=== PATIENT | female | born 2000 | race Caucasian/White ===

== ENCOUNTER 2023-07-10 14:50 | Outpatient (CLI) | payer OTHER ==
[2023-07-10] MEDS ORDERED: ADULT LOW DOSE81 M1 PO (15:01)
[2023-07-10] MEDS ORDERED: PRENATAL TABLE1 EAC1 PO (15:01)
[2023-07-10 15:36] LABS: PH,URINE 5.5 (5.0-8.0); URINE APPEARANCE Cloudy; URINE BILIRRUBIN Small (NEGATIVE); URINE BLOOD Negative; URINE COLOR Dark Yellow; URINE GLUCOSE Negative (NEGATIVE); URINE LEUKOCYTE Negative; URINE NITRATE Negative
[2023-07-10 15:41] LABS: URINE EPITHELIAL CELLS 118.5 uL (0.0-38.8); URINE RBC 38.2 uL (0.0-20.8)
[2023-07-10 16:20] LABS: URINE PROTEIN 100 (NEGATIVE)
[2023-07-10 16:22] LABS: URINE CRYSTALS MODERATE /HPF; URINE YEAST NEGATIVE /hpf
== END 2023-07-10 19:01 | disposition home or self-care (01) ==
LOC: OBS/DEL 14:50
PROVIDERS: Obstetrics & Gynecology; ATTEND Student in an Organized Health Care Education/Training Program
DX: O23.33 Infections of other parts of urinary tract in pregnancy, third trimester (principal); N39.0 Urinary tract infection, site not specified; Z3A.34 34 weeks gestation of pregnancy

== ENCOUNTER 2023-07-15 15:39 | Outpatient (CLI) | payer OTHER ==
[~2023-07-15 15:39] MED LIST: ADULT LOW DOSE81 M1 PO; PRENATAL TABLE1 EAC1 PO
[2023-07-15 17:22] LABS: HEMATOCRIT 32.7 % (36.0-45.00); HEMOGLOBIN 11.1 g/dL (12.0-15.00); MEAN CELL VOLUME 84.3 fL (80.00-100.00); MEAN CORPUSCULAR HEMOGLOBIN 28.7 pg (27.00-32.0); PLATELET COUNT 194 K/uL (150-450); RED BLOOD COUNT 3.88 M/uL (4.00-6.00); RED CELL DISTRIBUTION WIDTH 13.3 % (11.5-14.5)
[2023-07-15 17:22] LABS: URINE APPEARANCE Clear; URINE BILIRRUBIN Negative (NEGATIVE); URINE BLOOD Negative; URINE COLOR Yellow; URINE GLUCOSE Negative (NEGATIVE); URINE LEUKOCYTE Trace; URINE NITRATE Negative; URINE PROTEIN Negative (NEGATIVE)
[2023-07-15 17:25] LABS: URINE EPITHELIAL CELLS 28.2 uL (0.0-38.8); URINE RBC 2.8 uL (0.0-20.8)
[2023-07-15 17:46] LABS: INR 0.96; PARTIAL THROMBOPLASTIN TIME 24.8 SECONDS (22.0-34.0); PROTHROMBIN TIME 10.1 SECONDS (9.0-11.5)
[2023-07-15 17:50] LABS: ALBUMIN 2.6 gm/dL (3.4-5.0); BILIRUBIN TOTAL 0.32 mg/dL (0.3-1.2); CALCIUM 8.8 mg/dL (8.5-10.1); CREATININE SERUM 0.64 mg/dL (0.55-1.02); GLOBULINA 3.4 G/DL (2.4-3.5); POTASSIUM 3.92 mEq/L (3.5-5.1)
[2023-07-16 17:54] LABS: URINE PROT QUANT 24HR 25.9 MG/DL
[2023-07-16 17:56] LABS: URINE PROT QUANT 24 HR 362.6 MG/24HR (42-225)
[2023-07-16 18:42] LABS: CREATINE CLEARANCE 180.3 ML/MIN (97-137); CREATININE SERUM 0.67 mg/dL (0.6-1.0)
== END 2023-07-16 20:23 | disposition home or self-care (01) ==
LOC: OBS/DEL 15:39
PROVIDERS: ATTEND Obstetrics & Gynecology
DX: O14.93 Unspecified pre-eclampsia, third trimester (principal); O30.003 Twin pregnancy, unspecified number of placenta and unspecified number of amniotic sacs, third trimester; Z3A.34 34 weeks gestation of pregnancy; Z20.822 Contact with and (suspected) exposure to COVID-19

== ENCOUNTER 2023-07-28 14:00 | Inpatient (IN) | payer OTHER ==
[~2023-07-28] VITALS: Ht 165.1 cm; Wt 2.3 kg
[2023-07-28 15:03] LABS: PH,URINE 6.5 (5.0-8.0); URINE APPEARANCE Clear; URINE BILIRRUBIN Negative (NEGATIVE); URINE BLOOD Negative; URINE COLOR Yellow; URINE GLUCOSE Negative (NEGATIVE); URINE LEUKOCYTE Negative; URINE NITRATE Negative; URINE PROTEIN Trace (NEGATIVE)
[2023-07-28 15:04] LABS: HEMATOCRIT 36.8 % (36.0-45.00); HEMOGLOBIN 12.3 g/dL (12.0-15.00); MEAN CELL VOLUME 83.8 fL (80.00-100.00); MEAN CORPUSCULAR HEMOGLOBIN 27.9 pg (27.00-32.0); MEAN CORPUSCULAR HGB CONC 33.3 g/dl (32.0-36.0); PLATELET COUNT 219 K/uL (150-450); RED BLOOD COUNT 4.39 M/uL (4.00-6.00)
[2023-07-28 15:07] LABS: URINE BACTERIA 360.2 uL (0.0-1933); URINE EPITHELIAL CELLS 13.1 uL (0.0-38.8); URINE RBC 9.3 uL (0.0-20.8); URINE WBC 1.8 uL (0.0-23.2)
[2023-07-28 15:21] LABS: INR 0.94; PARTIAL THROMBOPLASTIN TIME 24.2 SECONDS (22.0-34.0); PROTHROMBIN TIME 9.9 SECONDS (9.0-11.5)
[2023-07-28 15:26] LABS: ALBUMIN 2.8 gm/dL (3.4-5.0); BILIRUBIN TOTAL 0.29 mg/dL (0.3-1.2); CALCIUM 9.2 mg/dL (8.5-10.1); CREATININE SERUM 0.72 mg/dL (0.55-1.02); GFR 99.52; GLOBULINA 3.8 G/DL (2.4-3.5); POTASSIUM 4.1 mEq/L (3.5-5.1); TOTAL PROTEIN 6.6 gm/dL (6.4-8.2)
[2023-08-04 03:51] LABS: HEMATOCRIT 32.7 % (36.0-45.00); HEMOGLOBIN 10.9 g/dL (12.0-15.00); MEAN CELL VOLUME 82.7 fL (80.00-100.00); MEAN CORPUSCULAR HEMOGLOBIN 27.6 pg (27.00-32.0); MEAN CORPUSCULAR HGB CONC 33.3 g/dl (32.0-36.0); PLATELET COUNT 172 K/uL (150-450); RED BLOOD COUNT 3.96 M/uL (4.00-6.00); RED CELL DISTRIBUTION WIDTH 13.8 % (11.5-14.5)
[2023-08-04 04:11] LABS: ABG PO2 11.3 mmHg (80-100); ABG pCO2 65.1 mmHg (35-45); BASE EXCESS -6.6 mmol/l; BICARBONATE 23.3 mmol/l (23-25); SaO2 7.7 %; Tco2 25.2 mmol/l; o2 21 %
[2023-08-04 04:14] LABS: ABG PH 7.098 (7.35-7.45)
[2023-08-04 04:15] LABS: ABG PO2 8.3 mmHg (80-100); SaO2 4.4 %
[2023-08-04 04:16] LABS: BASE EXCESS -8.7 mmol/l; BICARBONATE 22.7 mmol/l (23-25); o2 21 %
[2023-08-06] MEDS ORDERED: COLACE100 MG PO (07:54)
[2023-08-06] MEDS ORDERED: IBU800 MG PO (07:55)
[2023-08-06] MEDS ORDERED: SIMETHICONE125 M1 PO (07:55)
== END 2023-08-06 14:07 | disposition home or self-care (01) | DRG 788 ==
LOC: OB/GYN 08-03 06:11 → LDR 08-03 06:11 → OB/GYN 08-03 13:56 → LDR 08-03 14:00 → OB/GYN 08-06 14:07
PROVIDERS: ADMIT Student in an Organized Health Care Education/Training Program; ATTEND Student in an Organized Health Care Education/Training Program
PROC: 4A1HXCZ Monitoring of Products of Conception, Cardiac Rate, External Approach (ICD-10-PCS; 2023-08-03)
PROC: 3E033VJ Introduction of Other Hormone into Peripheral Vein, Percutaneous Approach (ICD-10-PCS; 2023-08-03)
PROC: 3E0P7VZ Introduction of Hormone into Female Reproductive, Via Natural or Artificial Opening (ICD-10-PCS; 2023-08-03)
PROC: 10D00Z1 Extraction of Products of Conception, Low, Open Approach (ICD-10-PCS; principal; 2023-08-03 21:30)
DX: O62.1 Secondary uterine inertia (principal); O30.043 Twin pregnancy, dichorionic/diamniotic, third trimester; Z3A.37 37 weeks gestation of pregnancy; Z20.822 Contact with and (suspected) exposure to COVID-19; Z37.2 Twins, both liveborn